=== PATIENT | female | born 1965 | race Hispanic/Latino ===

== ENCOUNTER → 2017-07-11 | Outpatient (CLI) | payer BC | END | disposition home or self-care (01) | LOC: RAH 12:58 | PROVIDERS: ATTEND Internal Medicine Critical Care Medicine | DX: Z12.31 Encounter for screening mammogram for malignant neoplasm of breast (principal) | CPT/HCPCS: 77067 ==

== ENCOUNTER → 2018-01-23 | Outpatient (CLI) | payer BC ==
[2018-01-23 11:07] LABS: CREATININE 0.6 mg/dL (0.5-1.5); POTASSIUM 4.4 mmol/L (3.5-5.1)
== END | disposition home or self-care (01) ==
LOC: LAB 09:59
PROVIDERS: ATTEND Urology
DX: R31.29 Other microscopic hematuria (principal)
CPT/HCPCS: 36415; 80048

== ENCOUNTER → 2018-03-25 | Outpatient (CLI) | payer BC ==
[2018-03-25 17:35] LABS: CREATININE 0.6 mg/dL (0.5-1.5)
== END | disposition home or self-care (01) ==
LOC: LAB 16:49
PROVIDERS: ATTEND Urology
DX: R31.29 Other microscopic hematuria (principal)
CPT/HCPCS: 36415; 80048

== ENCOUNTER → 2018-03-31 | Outpatient (CLI) | payer BC ==
[~2018-03-31] MED LIST: IOHEXOL-350 75 ML VIAL IV ONE
== END | disposition home or self-care (01) ==
LOC: RAH 08:57
PROVIDERS: ATTEND Urology
DX: N85.2 Hypertrophy of uterus (principal); I70.90 Unspecified atherosclerosis; M47.815 Spondylosis without myelopathy or radiculopathy, thoracolumbar region
CPT/HCPCS: 74178; Q9967

== ENCOUNTER → 2020-02-28 | Outpatient (CLI) | payer BC | END | disposition home or self-care (01) | LOC: RAH 13:56 | PROVIDERS: ATTEND Physician Assistant | DX: R92.2 Inconclusive mammogram (principal) | CPT/HCPCS: 77066 ==